=== PATIENT | female | born 1930 | race Caucasian/White ===

== ENCOUNTER 2017-11-30 12:37 | Observation (INO) | payer MEDICARE ==
[~2017-11-30] VITALS: Ht 152.4 cm; Wt 48.5 kg
--- NOTE | 2017-11-30 13:16 | Diagnostic Imaging Report ---
EXAMINATION: Head CT HISTORY: Left-sided numbness, facial drooping, evaluate for acute stroke COMPARISON: None available TECHNIQUE: Multidetector axial images were obtained without contrast from the foramen magnum to the vertex . The images were reconstructed using brain and bone algorithms. Thin section brain images were reformatted into coronal and sagittal planes. Image quality: Motion/streaking artifact limits the evaluation of the skull base and posterior cranial fossa. FINDINGS: Parenchyma: 1. Few scattered white matter hypodensities, most likely nonspecific chronic microvascular ischemic changes. Prominent perivascular space inferior to the right putamen corresponds to a normal finding. 2. No mass or hemorrhage. No CT evidence of acute territorial vascular insult. Extra-axial spaces:No abnormal density. No extra-axial fluid collections Brain volume: Normal for age. Ventricles: No hydrocephalus or displacement. Arteries: No density suggestive of thrombus. Dural sinuses: No abnormal density. Extra-axial spaces: No abnormal density. Foramen magnum: No mass, Chiari malformation, or basilar invagination. Sella: No obvious mass. Paranasal/mastoid sinuses: Imaged portions unremarkable. Skull/Scalp: No lytic or blastic lesions. No fractures. Incidentally noted left superior frontal convexity extra-axial calcification that may represent a bony exostosis versus a small calcified meningioma without associated mass effect and of no clinical significance. IMPRESSION: 1. No acute intracranial hemorrhage or cortical infarcts. 2. Mild chronic microvascular ischemic changes. Signed by: Dr. Renee Fung M.D. on 11/30/2017 1:13 PM
[2017-11-30 13:42] LABS: BASOPHILS % 0.5 % (0.0-1.0); EOSINOPHILS # (AUTO) 0.1 (0.0-0.4); HEMATOCRIT 45.5 % (34.2-44.1); HEMOGLOBIN 14.9 g/dL (12.0-16.0); LYMPHOCYTES # (AUTO) 1.7 (1.0-3.2); LYMPHOCYTES % 20.8 % (18.0-39.1); MEAN CORPUSCULAR HEMOGLOBIN 29.3 pg (28-32); MEAN CORPUSCULAR HGB CONC 32.7 g/dL (31-35); MEAN CORPUSCULAR VOLUME 89.4 fL (81-99); MONOCYTES # (AUTO) 0.8 (0.2-0.8); MONOCYTES % 10.1 % (4.4-11.3); NEUTROPHILS # (AUTO) 5.3 (2.1-6.9); NEUTROPHILS % 67.1 % (38.7-80.0); PLATELET COUNT 255 x10e3/uL (140-360); RED BLOOD COUNT 5.09 x10e6/uL (3.6-5.1); RED CELL DISTRIBUTION WIDTH 14.1 % (11.7-14.4)
[2017-11-30 13:45] LABS: INR 1.09; PROTHROMBIN TIME 13.3 seconds (11.9-14.5)
[2017-11-30 13:46] LABS: PARTIAL THROMBOPLASTIN TIME 26.3 seconds (23.8-35.5)
[2017-11-30 13:54] LABS: ALBUMIN 3.8 g/dL (3.5-5.0); ALBUMIN/GLOBULIN RATIO 0.9 (0.8-2.0); ANION GAP 12.8 mmol/L (8-16); CREATININE, SERUM 1.16 mg/dL (0.57-1.11); POTASSIUM 4.8 mmol/L (3.5-5.1)
[2017-11-30] MEDS ORDERED: ONDANSETRON HCL INJ 2 MG/ML VIAL IV PRN (16:00)
[2017-11-30 16:10] VITALS: BP 163/82
--- NOTE | 2017-11-30 17:18 | Diagnostic Imaging Report ---
Examination: MRI BRAIN WITHOUT CONTRAST History: Left-sided numbness. Comparison studies: Head CT performed earlier today. Technique: Axial DWI, FLAIR, T2, T1. Coronal FLAIR and sagittal T2 and gradient images were not obtained as patient refused to continue the MR exam. Intravenous contrast: None Findings: Study is limited due to incomplete protocol and motion artifact on both the axial T2 and T1 images. Scalp: No abnormal signal. No masses. Bone marrow: Normal in signal intensity. Brain volume: Adequate for age. No volume loss. Ventricles: Normal in size and configuration. No hydrocephalus. Extra-axial spaces: No abnormalities. Parenchyma: Dilated perivascular space in the inferior right putamen, measures 1.2 cm in anteroposterior dimension. A chronic infarct is demonstrated in the right and left zeke. No masses, hemorrhage, or acute vascular insults. There are patchy and several punctate areas of T2/FLAIR hyperintensity in the periventricular and subcortical white matter, nonspecific. Suprasellar and sellar region: Cannot be evaluated due to lack of sagittal imaging. Craniocervical junction: Cannot be evaluated due to lack of sagittal imaging and motion artifact on the axial images. Vessels: Cannot be evaluated due to motion artifact IMPRESSION: 1. No acute infarct. 2. 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 3. Mild chronic microvascular ischemic change. Signed by: Dr. Giovanna Reddy M.D. on 11/30/2017 5:15 PM
[2017-11-30 18:17] VITALS: BP 148/73
[2017-11-30 18:20] VITALS: BP 163/82
[2017-11-30 20:00] VITALS: BP 136/65
[2017-12-01 02:13] VITALS: BP 136/65
[2017-12-01 04:00] VITALS: BP 160/74
[2017-12-01 08:00] VITALS: BP 139/72
[2017-12-01 08:08] VITALS: BP 160/74
[2017-12-01] MEDS ORDERED: ASPIRIN 325 MG TAB EC PO SCH (09:00)
[2017-12-01 11:32] VITALS: BP 149/69
[2017-12-01 16:09] VITALS: BP 107/69
== END 2017-12-01 17:07 | disposition home health service (06) ==
LOC: ER 12:37 → ERHOLD 16:12 → IMCU 18:02
PROVIDERS: ADMIT Internal Medicine; ATTEND Internal Medicine
DX: R53.1 Weakness (principal); R20.0 Anesthesia of skin; R26.2 Difficulty in walking, not elsewhere classified; I10 Essential (primary) hypertension; E03.9 Hypothyroidism, unspecified; M19.90 Unspecified osteoarthritis, unspecified site; Z79.82 Long term (current) use of aspirin; Z88.5 Allergy status to narcotic agent
CPT/HCPCS: 36415; 70450; 70551; 80053; 85025; 85610; 85730; 93005; 93306; 93880; 97139; 99284; G0378 ×2